=== PATIENT | male | born 1975 | race Caucasian/White ===

== ENCOUNTER → 2017-02-19 | Outpatient (CLI) | payer OTHER ==
--- NOTE | 2017-02-19 09:35 | DIAGNOSTIC IMAGING REPORT ---
CERVICAL SPINE 5 VIEWS CLINICAL HISTORY: Back pain. FINDINGS: AP, lateral, bilateral oblique, and odontoid views of the cervical spine are obtained. No prior studies are available for comparison at the time of dictation. The skeletal structures are well mineralized. There is no radiographic evidence of fracture or subluxation. The odontoid process and lateral masses appear intact on the open mouth view. The spinolaminar line is preserved. Vertebral body height and alignment are maintained. There is mild straightening of the cervical lordosis, likely related to positioning. The spinous processes appear intact. The intervertebral disc spaces are normal. There is no evidence of neuroforaminal stenosis on the oblique views. The prevertebral soft tissues are within normal limits. Visualized apical lung parenchyma appears clear. IMPRESSION: Unremarkable radiographic assessment of the cervical spine. Electronically signed by: Davie Hollingsworth M.D. 02/19/2017 9:34 AM Dictated Date/Time: 02/19/2017 9:33 AM
--- NOTE | 2017-02-19 09:36 | DIAGNOSTIC IMAGING REPORT ---
THORACIC SPINE 3 VIEWS CLINICAL HISTORY: Thoracic back pain. FINDINGS: AP, lateral, and swimmer's views of the thoracic spine are obtained. No prior studies are available for comparison at the time of dictation. The skeletal structures are well mineralized. There is no radiographic evidence of fracture or malalignment. Vertebral body height and alignment are maintained. Tiny anterior osteophytes are noted in the lower thoracic region. The spinous processes are intact as imaged. The transverse processes and pedicles are grossly intact as seen on the frontal view. The disc spaces are maintained. The imaged lung parenchyma appears clear. IMPRESSION: Unremarkable radiographic assessment of the thoracic spine. Electronically signed by: Davie Hollingsworth M.D. 02/19/2017 9:35 AM Dictated Date/Time: 02/19/2017 9:34 AM
== END | disposition home or self-care (01) ==
LOC: C.RAD1850 08:45
PROVIDERS: ATTEND Nurse Practitioner Family
DX: M54.2 Cervicalgia (principal); M54.6 Pain in thoracic spine